=== PATIENT | female | born 1985 | race Caucasian/White ===

== ENCOUNTER 2016-10-08 05:00 | Inpatient (IN) | payer BC ==
[2016-10-08] MEDS ORDERED: OLIVE OIL 118 ML BTL MISC PRN (05:18)
[2016-10-08] MEDS ORDERED: OXYTOCIN/RINGERS LACTATE 1,000 ML IV PRN (05:18)
[2016-10-08] MEDS ORDERED: EPSOM SALT 454 GM TP PRN (05:18)
[2016-10-08] MEDS ORDERED: TERBUTALINE SULFATE 1 MG/ML VIAL IV PRN (05:18)
[2016-10-08] MEDS ORDERED: LR 1,000 ML IV PRN (05:18)
[2016-10-08] MEDS ORDERED: LIDOCAINE 1% 300 MG/30 ML SDV ONE (05:47)
[2016-10-08] MEDS ORDERED: OLIVE OIL 118 ML BTL ONE (05:47)
[2016-10-08] MEDS ORDERED: TERBUTALINE SULFATE 1 MG/ML VIAL ONE (05:48)
[2016-10-08] MEDS ORDERED: OXYTOCIN 10 UNIT/ML VIAL ONE (05:48)
[2016-10-08] MEDS ORDERED: AMMONIA AROMATIC 1 EACH AMP IH ONE (05:48)
[2016-10-08] MEDS ORDERED: MISOPROSTOL 200 MCG TAB ONE (05:48)
[2016-10-08] MEDS ORDERED: OXYTOCIN/LR *STANDARD DOSE PROTOCOL IV SCH (06:00)
[2016-10-08 06:14] LABS: % IMMATURE GRANULYOCYTES 0.5 % (0.0-1.1); ABSOLUTE IMMATURE GRANULOCYTES 0.06 10^3/uL (0.00-0.10); ADD DIFF? NO; ADD MORPH? NO; ADD SCAN? NO; ATYPICAL LYMPHOCYTE FLAG 10 (0-99); FRAGMENT RBC FLAG 0 (0-99); HEMATOCRIT 33.8 % (38.0-47.0); HEMOGLOBIN 11.6 g/dL (12.6-16.3); LEFT SHIFT FLG 0 (0-99); LIPEMIA HEMOLYSIS FLAG 90 (0-99); MEAN CELL HEMOGLOBIN 28.5 pg (27.9-34.1); MEAN CELL HEMOGLOBIN CONCENTR. 34.3 g/dL (32.4-36.7); MEAN PLATELET VOLUME 13.1 fL (8.7-11.7); PLATELET CLUMPS FLAG 10 (0-99); PLATELET COUNT 127 10^3/uL (150-400); RED BLOOD CELL COUNT 4.07 10^6/uL (4.18-5.33); RED CELL DISTRIBUTION WIDTH 14.8 % (11.5-15.2)
--- NOTE | 2016-10-08 08:23 | OBPROG ---
OBG Labor Progress Note Assessment/Plan: Assessment:cat 2 fhr pain 8-9 requesting an epidural for pain relief tub until able to get an epidural contractions q3-4 pitocin at 6mu Plan:epidural, tub until able to get an epidural. expectant management of labor 10/08/16 08:22 Subjective: I am hurting with the contractions. PAin level an 8-9 with the contractions requesting an epidural. Objective: 10/08/16 05:50 Patient ABO/Rh AB POSITIVE 10/08/16 05:50 - SVE Dilation (cm): 5 Effacement (%): 90 Station: -1 - Physical Exam General Appearance: WD/WN, alert, no apparent distress Respiratory: chest non-tender, lungs clear, normal breath sounds Cardiac/Chest: regular rate, rhythm Abdomen: normal bowel sounds Extremities: normal range of motion, Vasu's sign (negative bilaterally) DTR- Lower Extremities: Knee (R): 1+, Knee (L): 1+ (no clonus bilaterally) Skin: normal color, warm/dry Neuro/Psych: no motor/sensory deficits, alert, normal mood/affect, oriented x 3 Oxytocin Orders Assessment - Pre-Induction/Augmentation Assessment Gestational Age: 39 week(s) and 0 day(s) ICD10 Worksheet Patient Problems: Problems Problem Status Onset Elective induction of labor planned Acute Normal labor Acute
[2016-10-08] MEDS ORDERED: ONDANSETRON 4 MG/2 ML VIAL ONE (08:55)
[2016-10-08] MEDS ORDERED: PHENYLEPHRINE HCL 100 MCG/ML SYR ONE (09:01)
[2016-10-08] MEDS ORDERED: BUPIVACAINE 0.25% 30 ML SDV ONE (09:01)
[2016-10-08] MEDS ORDERED: fentaNYL 2MCG/ML/BUP 0.1% RTU 100 ML BAG EP ONE (09:01)
[2016-10-08] MEDS ORDERED: fentaNYL 100 MCG/2 ML INJ ONE ×2 (09:02→09:56)
--- NOTE | 2016-10-08 09:23 | PREANESOB ---
Obstetric Pre-Anesthesia Info - General Info Proposed Procedure: Labor and delivery with pitocin. : 2 Para: 1 - Labor Status Cervical Dilation per last OB SVE: 5 Station per last OB SVE: -1 Rupture of Membranes Time: 17:15 Labor Epidural: Proposed Anesthesia Allergies/Adverse Reactions: Allergy/AdvReac Type Severity Reaction Status Date / Time Penicillins Allergy Itching Verified 11/17/14 21:08 Home Medications: Medication Instructions Recorded Sujit-Sequels 50 mg 1 tab PO BID 08/31/14 1 tab PO DAILY 08/31/14 Aller-Arlene D 5-120 mg Tablet 1 tab PO DAILY 11/17/14 Fish Oil 1,000 mg Softgel 1 cap PO HS 11/17/14 Hydrocodone/APAP 5/325 [[place] 1 - 2 tab PO Q4 PRN #20 tab 11/26/14 5/325 (*)] Visit Medications: Generic Name Dose Route Start Last Admin Trade Name Freq PRN Reason Stop Dose Admin Lactated Ringer's 1,000 mls @ 0 mls/hr 10/08/16 05:18 Lr IV 04/06/17 05:17 PRN PRN SEE PROTOCOL CONDITIONS Protocol Per Protocol Oxytocin/Lactated Ringer's 1,000 mls @ 150 mls/hr 10/08/16 05:18 Pitocin 20 Units/Lr (Premix) IV PRN PRN Post- bleeding Oxytocin/Lactated Ringer's 500 mls @ 0 mls/hr 10/08/16 06:00 10/08/16 05:58 Pitocin 30 Units/Lr (Premix) IV 04/06/17 05:59 500 mls CONT BARBARA Administration Protocol Per Protocol Ibuprofen 600 mg 10/08/16 05:18 Motrin PO 04/06/17 05:17 Q6HRS PRN post , inflammation Magnesium Sulfate 454 gm 10/08/16 05:18 Epsom Salt TP 04/06/17 05:17 PRN PRN perineal discomfort [place] Oil 118 ml 10/08/16 05:18 Sweet Oil MISC 04/06/17 05:17 ONCE PRN preneal massage Terbutaline Sulfate 0.25 mg 10/08/16 05:18 Brethine IV 04/06/17 05:17 ONCE PRN Tachysystole Discontinued Medications Generic Name Dose Route Start Last Admin Trade Name Freq PRN Reason Stop Dose Admin Ammonia (Aromatic Spirit) Confirm 10/08/16 05:48 Ammonia Aromatic Administered 10/08/16 05:49 Dose 1 each IH .STK-MED ONE Lidocaine HCl Confirm 10/08/16 05:47 Lidocaine Hcl 1% Administered 10/08/16 05:48 Dose 300 mg .ROUTE .STK-MED ONE Misoprostol Confirm 10/08/16 05:48 Cytotec Administered 10/08/16 05:49 Dose 1,000 mcg .ROUTE .STK-MED ONE [place] Oil Confirm 10/08/16 05:47 Sweet Oil Administered 10/08/16 05:48 Dose 118 ml .ROUTE .STK-MED ONE Ondansetron HCl Confirm 10/08/16 08:55 Zofran Administered 10/08/16 08:56 Dose 4 mg .ROUTE .STK-MED ONE Oxytocin Confirm 10/08/16 05:48 Pitocin Administered 10/08/16 05:49 Dose 40 unit .ROUTE .STK-MED ONE Terbutaline Sulfate Confirm 10/08/16 05:48 Brethine Administered 10/08/16 05:49 Dose 1 mg .ROUTE .STK-MED ONE - Focused Exam Blood Pressure: 119/72 Heart Rate: 107 Respiratory Rate: 16 Height/Weight (Nursing): Height 157.48 cm Weight 81.647 kg Labs: 10/08/16 05:50 Patient ABO/Rh AB POSITIVE 10/08/16 05:50
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
[2016-10-08] MEDS ORDERED: MISOPROSTOL 200 MCG TAB PR ONE (10:00)
[2016-10-08] MEDS ORDERED: ceFAZolin 2 GM/DEXTROSE 100 ML IV ONE (10:21)
[2016-10-08] MEDS ORDERED: ACETAMINOPHEN 325 MG TAB PO PRN (10:23)
[2016-10-08] MEDS ORDERED: HYDROCORTISONE 0.5% CREAM TP PRN (10:23)
[2016-10-08] MEDS ORDERED: SIMETHICONE 80 MG TAB CHEW PO PRN (10:23)
--- NOTE | 2016-10-08 10:28 | OBDEL ---
Info Type: Vaginal GBS+: No Indications for Delivery: SROM (pitocin 12 h after srom) Vaginal Delivery - Labor and Delivery Onset of Contractions Date: 10/08/16 Onset of Contractions Time: 05:00 Onset of Contractions Type: Augmented Rupture of Membranes Date: 10/07/16 Rupture of Membranes Time: 17:15 Rupture of Membranes Type: Spontaneous Amniotic Fluid Color: Clear Dilation Complete Date: 10/08/16 Dilation Complete Time: 09:20 Placenta Delivery Date: 10/08/16 Placenta Delivery Time: 09:55 Total Hours of Labor: 4 Laceration: 1st Degree Vaginal Sponge Count Correct: Yes Vaginal Needle Count Correct: Yes Vaginal Sweep Performed: Yes EBL: 700 Delivery Events: None Delivery Comment: retained placenta fragmants. Call for dr. figueroa. %0mcg fentanyl and then michelle currette pass x 3. Ancef x 1 dose after michelle sweeps. Able to visualze endometrial stripe after michelle use x 3 without difficulty. PP hemorrage 600cc after sweep 100cc weighed. Cytotec 1000mcg. - Medications Labor Augmentation/Induction Methods Used: Pitocin [place] Data [place] Delivery Date: 10/08/16 Delivery Time: 09:30 DEBBIE: 10/08/16 Gestational Age: 40 week(s) and 0 day(s) Score (1 Min): 8 Score (5 Min): 9 ICD10 Worksheet Patient Problems: Problems Problem Status Onset Elective induction of labor planned Acute Normal labor Acute
[2016-10-08] MEDS ORDERED: fentaNYL 100 MCG/2 ML INJ IVP ONE (10:30)
--- NOTE | 2016-10-08 10:35 | OBPP ---
Progress Note Assessment/Plan: Assessment retained placenta 700cc ebl after delivery michelle curette after delivery x3 by dr. figueroa fentanyl 50mcg ivp cytotec 1000mcg per rectum x 1 unable to get epidural for pain relief delivered naturally perineal laceration hemostatic no repair Plan:observation on labor deck 10/08/16 08:22 10/08/16 10:32 Subjective: Doing better after delivery some lightheadedness after michelle Objective: 10/08/16 05:50 Patient ABO/Rh AB POSITIVE 10/08/16 05:50 Temp Pulse Resp BP Pulse Ox 107 H 16 119/72 10/08/16 09:39 10/08/16 09:39 10/08/16 09:39 Uterine Position/Fundal Height: At Umbilicus Uterine Tone: Firm
--- NOTE | 2016-10-08 10:39 | OBGCSDC ---
General Delivery Information - General Info : 2 Para: 1 Delivery Physician/CNM: Lenore Santiago Admission Date: 10/08/16 Labs: Patient ABO/Rh AB POSITIVE 10/08/16 05:50 Hct 33.8 % (38.0-47.0) L 10/08/16 05:50 Vaginal - Diagnosis Labor: Augmented Rupture of Membranes Type: Spontaneous Amniotic Fluid Color: Clear Laceration: 1st Degree Delivery Events: None - Hospital Course Antepartum: 12h srom clear fluid. No regular contractions. pitocin begun at 5am Intrapartum: retained placenta. MArginal insertion of the cord. Evulsed. Jean Marie curette x [address] [place]. PP hemorrage 700ccEBL Unable to have epidural, quick to delivery after getting in the tub. Perineal laceration hemostic no repair needed - Delivery Type: Vaginal EBL: 700 [place] Data [place] Delivery Date: 10/08/16 Delivery Time: 09:30 DEBBIE: 10/08/16 Gestational Age: 40 week(s) and 0 day(s) Sex of : Female Score (1 Min): 8 Score (5 Min): 9
[2016-10-08] MEDS ORDERED: CLINDAMYCIN 900 MG/DEXTROSE 50 ML IV ONE (11:00)
[2016-10-08] MEDS: IBUPROFEN 600 MG TAB PO PRN ×3 (11:11→23:13)
[2016-10-08] MEDS: HYDROCODONE/APAP 5/325 TAB PO PRN ×2 (13:33→15:47)
[2016-10-08] MEDS: DOCUSATE SODIUM 100 MG CAP PO PRN ×2 (15:48→23:13)
[2016-10-08 21:34] VITALS: RESP 18
[2016-10-09] MEDS: IBUPROFEN 600 MG TAB PO PRN ×2 (05:44→12:34)
--- NOTE | 2016-10-09 10:36 | OBPP ---
Progress Note Assessment/Plan: Assessment: 31 y/o PPD #1 s/p with pp hemorrhage and bedside placental curettage Plan: Pt is aware of her degree of anemia and she will take iron BID and has good support. D/c home today with Ibuprofen, and Bifera BID. Follow-up @ [facility] 4 and 6 weeks. 10/09/16 10:36 Subjective: Pt is doing well this am. She is ambulating, voiding well without difficulty. Denies dizziness and light headedness. Breast feeding is going well and baby is doing well. They want to go home. She feels that she has good support at home. Objective: 10/09/16 02:05 Patient ABO/Rh AB POSITIVE 10/08/16 05:50 Temp Pulse Resp BP Pulse Ox 36.9 C 91 18 125/70 H 93 10/08/16 20:00 10/08/16 20:00 10/08/16 20:00 10/08/16 20:00 10/08/16 13:17 Uterine Position/Fundal Height: Umbilicus -2 Uterine Tone: Firm Physical Exam - Physical Exam General Appearance: WD/WN, alert, no apparent distress Neck: non-tender, full range of motion, supple Respiratory: chest non-tender, lungs clear, normal breath sounds Cardiac/Chest: regular rate, rhythm Abdomen: normal bowel sounds Extremities: swelling (no), Vasu's sign (neg)
[2016-10-09 10:43] VITALS: BP 127/77; PULSE 94; TEMP 97.6; O2SAT 99
[2016-10-09] MEDS ORDERED: IRON POLYSAC/IRON HEME 28 MG TAB PO SCH (10:45)
[2016-10-09] MEDS: DOCUSATE SODIUM 100 MG CAP PO PRN (11:17)
== END 2016-10-09 13:40 | disposition home or self-care (01) | DRG 767 ==
LOC: FLD 05:00 → FOB 13:10
PROVIDERS: ADMIT Obstetrics & Gynecology; ATTEND Obstetrics & Gynecology
DX: O42.02 Full-term premature rupture of membranes, onset of labor within 24 hours of rupture (principal); O69.89X0 Labor and delivery complicated by other cord complications, not applicable or unspecified; O72.0 Third-stage hemorrhage; O90.81 Anemia of the puerperium; O70.0 First degree perineal laceration during delivery; Z3A.39 39 weeks gestation of pregnancy; Z37.0 Single live birth
CPT/HCPCS: G0463; J2370; J2405; J2590; J3010; J3105